=== PATIENT | female | born 1980 | race African-American/Black ===

== ENCOUNTER 2019-11-27 00:16 | Emergency (ER) | payer SELFPAY ==
[~2019-11-27] VITALS: Ht 162.6 cm; Wt 61.4 kg
[2019-11-27 04:57] LABS: AMPHET/METH SCREEN,URINE NEGATIVE (NEGATIVE); BARBITURATE SCREEN, URINE NEGATIVE (NEGATIVE); BENZODIAZEPINES SCREEN,URINE NEGATIVE (NEGATIVE); CANNABINOID SCREEN,URINE NEGATIVE (NEGATIVE); COCAINE SCREEN,URINE NEGATIVE (NEGATIVE); METHADONE SCREEN, URINE NEGATIVE (NEGATIVE); OPIATE SCREEN,URINE NEGATIVE (NEGATIVE)
[2019-11-27 05:08] LABS: PHENCYCLIDINE SCREEN,URINE NEGATIVE (NEGATIVE)
[2019-11-27 10:15] VITALS: BP 112/66
== END 2019-11-27 10:45 | disposition home or self-care (01) ==
LOC: EMS 00:16
DX: F10.129 Alcohol abuse with intoxication, unspecified (principal); R45.1 Restlessness and agitation

== ENCOUNTER 2019-11-28 20:53 | Emergency (ER) | payer OTHER ==
[~2019-11-28] VITALS: Ht 160 cm; Wt 52.3 kg
[2019-11-28 21:05] VITALS: BP 135/87
[2019-11-28 23:17] LABS: BASOPHILS % (AUTO) 1.2 % (0.0-2.0); EOSINOPHILS % (AUTO) 0.8 % (1.0-6.0); HEMOGLOBIN 11.3 g/dL (12.0-16.0); LYMPHOCYTES # (AUTO) 1.7 K/uL (1.0-4.8); LYMPHOCYTES % (AUTO) 38.6 % (22.0-44.0); MEAN CORPUSCULAR HGB CONC 33.2 G/dL (31.0-37.0); MEAN CORPUSCULAR VOLUME 93 fL (80-100); MONOCYTES # (AUTO) 0.2 K/uL (0.1-1.0); NEUTROPHILS # (AUTO) 2.4 K/uL (1.8-7.7); NEUTROPHILS % (AUTO) 54.4 % (40.0-70.0); PLATELET COUNT (AUTO) 164 K/uL (150-450); RED BLOOD CELL COUNT(AUTO) 3.65 MIL/uL (4.00-5.20); RED CELL DISTRIBUTION WIDTH 19.8 % (11.5-14.5)
[2019-11-28 23:24] LABS: ANION GAP 17 mmol/L (8-16); CALCIUM, TOTAL 8.8 mg/dL (8.8-10.5); CARBON DIOXIDE 22 mmol/L (22-29); CHLORIDE 97 mmol/L (98-107); CREATININE 0.62 mg/dL (0.60-1.30); GLOMERULAR FILTR. RATE CALC > 60 mL/min (>60); GLUCOSE,RANDOM 63 mg/dL (70-110); POTASSIUM 3.9 mmol/L (3.5-5.1); SODIUM SERUM 136 mmol/L (136-145); UREA NITROGEN, BLOOD 5 mg/dL (7-18)
[2019-11-28 23:40] LABS: ALANINE AMINOTRANSFERASE 97 U/L (12-78); ALBUMIN 4.5 g/dL (3.4-5.0); ALKALINE PHOSPHATASE 75 U/L (46-116); ASPARTATE AMINOTRANSFERASE 148 U/L (15-37); BILIRUBIN,TOTAL 0.7 mg/dL (0.1-1.0); FREE T4 (FREE THYROXINE) 0.51 ng/dL (0.76-1.46); HCG,QUANTITATIVE < 1 mIU/mL (0-6); LIPASE 103 U/L (73-393); THYROID STIMULATING HORMONE 95.12 uIU/mL (0.36-3.74); TOTAL PROTEIN, SERUM 8.1 g/dL (6.4-8.2)
[2019-11-28 23:43] LABS: B-TYPE NATRIURETIC PEPTIDE 16 pg/mL (0-100)
[2019-11-29] MEDS ORDERED: LEVOTHYROXINE SODIUM 200 MCG TABLET PO ONE (02:15)
[2019-11-29 03:32] LABS: APPEARANCE,URINE CLOUDY (CLEAR); BILIRUBIN,URINE NEGATIVE (NEGATIVE); GLUCOSE, URINE (UA) NEGATIVE (NEGATIVE); KETONES,URINE TRACE mg/dL (NEGATIVE); LEUKOCYTE ESTERASE ,URINE NEGATIVE (NEGATIVE); NITRATE,URINE NEGATIVE (NEGATIVE); OCCULT BLOOD,URINE NEGATIVE (NEGATIVE); PROTEIN,URINE SEE CONFIRM (NEGATIVE)
[2019-11-29 03:58] LABS: BACTERIA,URINE Rare /HPF (None Seen); RBC,URINE None Seen /HPF (0-2); SQUAMOUS EPITHELIAL CELL,UR Few /LPF (None Seen); WBC,URINE 0-2 /HPF (0-5)
[2019-11-29 03:59] LABS: SULFOSALICYLIC ACID,URINE 2+ (Negative)
== END 2019-11-29 02:51 | disposition home or self-care (01) ==
LOC: EMS 20:53
DX: F10.129 Alcohol abuse with intoxication, unspecified (principal); E03.9 Hypothyroidism, unspecified; R07.9 Chest pain, unspecified; R00.2 Palpitations; Y90.6 Blood alcohol level of 120-199 mg/100 ml
CPT/HCPCS: 36415; 71045; 80053; 81001; 83690; 83880; 84439; 84443; 84484; 84702; 85025; 93005; 99285; G0480

== ENCOUNTER 2020-12-04 20:47 | Emergency (ER) | payer MEDICAID, OTHER ==
[~2020-12-04] VITALS: Ht 160 cm; Wt 52.3 kg
[2020-12-04] MEDS ORDERED: LEVO75 PO (20:52)
[2020-12-04 22:14] LABS: APPEARANCE,URINE TURBID (CLEAR); BILIRUBIN,URINE NEGATIVE (NEGATIVE); GLUCOSE, URINE (UA) NEGATIVE (NEGATIVE); KETONES,URINE NEGATIVE (NEGATIVE); LEUKOCYTE ESTERASE ,URINE LARGE (NEGATIVE); NITRATE,URINE NEGATIVE (NEGATIVE); OCCULT BLOOD,URINE SMALL (NEGATIVE); PROTEIN,URINE POS 1+ (NEGATIVE); UROBILINOGEN,URINE 0.2 mg/dL (<=1.0)
[2020-12-04 22:20] LABS: BACTERIA,URINE Many /HPF (None Seen); RBC,URINE 0-2 /HPF (0-2); SQUAMOUS EPITHELIAL CELL,UR Many /LPF (None Seen); WBC,URINE >100 /HPF (0-5)
[2020-12-04] MEDS ORDERED: ACETAMINOPHEN 500 MG TABLET PO ONE (22:30)
[2020-12-05] MEDS ORDERED: DOXYCYCLINE HYCLATE 100 MG TABLET PO ONE (00:30)
[2020-12-05] MEDS ORDERED: CefTRIAXone SODIUM 1 GM/VIAL IM ONE (00:30)
[2020-12-05] MEDS ORDERED: LIDOCAINE/PF 1% 2 ML VIAL IM ONE (00:30)
[2020-12-05] MEDS ORDERED: MetroNIDAZOLE 500 MG TABLET PO ONE (00:30)
[2020-12-05] MEDS ORDERED: CIPROFLOXACIN HCL 250 MG TABLET PO ONE (00:45)
[2020-12-05] MEDS ORDERED: IBUPROFEN 600 MG TABLET PO ONE (01:15)
[2020-12-05 01:25] VITALS: BP 123/83
== END 2020-12-05 01:40 | disposition home or self-care (01) ==
LOC: EMS 20:47
DX: N39.0 Urinary tract infection, site not specified (principal); N89.8 Other specified noninflammatory disorders of vagina; F17.210 Nicotine dependence, cigarettes, uncomplicated
CPT/HCPCS: 81001; 81025; 84703; 87086; 87210; 87491; 87591; 96372; 99284; J0696; J3490

== ENCOUNTER 2021-08-08 17:22 | Emergency (ER) | payer MEDICAID ==
[~2021-08-08] VITALS: Ht 157.5 cm; Wt 52.3 kg
[~2021-08-08 17:22] MED LIST: LEVO75 PO
[2021-08-08 18:41] LABS: APPEARANCE,URINE CLEAR (CLEAR); BILIRUBIN,URINE NEGATIVE (NEGATIVE); GLUCOSE, URINE (UA) NEGATIVE (NEGATIVE); KETONES,URINE NEGATIVE (NEGATIVE); LEUKOCYTE ESTERASE ,URINE LARGE Leu/uL (NEGATIVE); NITRATE,URINE NEGATIVE (NEGATIVE); OCCULT BLOOD,URINE LARGE (NEGATIVE); PROTEIN,URINE TRACE (NEGATIVE); SPECIFIC GRAVITIY, URINE 1.009 (1.003-1.030); UROBILINOGEN,URINE <=1.0 mg/dL (<=1.0)
[2021-08-08 18:47] LABS: BASOPHILS % (AUTO) 0.1 % (0.0-2.0); EOSINOPHILS % (AUTO) 1.2 % (1.0-6.0); HEMATOCRIT 33.7 % (36-46); HEMOGLOBIN 11.1 g/dL (12.0-16.0); LYMPHOCYTES # (AUTO) 1.3 K/uL (1.0-4.8); MEAN CORPUSCULAR HEMOGLOBIN 30.6 pg (26.0-34.0); MEAN CORPUSCULAR HGB CONC 33.1 G/dL (31.0-37.0); MEAN CORPUSCULAR VOLUME 93 fL (80-100); MONOCYTES # (AUTO) 0.8 K/uL (0.1-1.0); MONOCYTES % (AUTO) 9.2 % (2.0-9.0); NEUTROPHILS # (AUTO) 6.6 K/uL (1.8-7.7); NEUTROPHILS % (AUTO) 74.5 % (40.0-70.0); PLATELET COUNT (AUTO) 211 K/uL (150-450); RED BLOOD CELL COUNT(AUTO) 3.64 MIL/uL (4.00-5.20)
[2021-08-08 18:52] LABS: BACTERIA,URINE None Seen /HPF (None Seen); SQUAMOUS EPITHELIAL CELL,UR Few /LPF (None Seen)
[2021-08-08 19:02] LABS: ANION GAP 14 mmol/L (8-16); CARBON DIOXIDE 25 mmol/L (22-29); CHLORIDE 100 mmol/L (98-107); GLOMERULAR FILTR. RATE CALC > 60 mL/min (>60); GLUCOSE,RANDOM 88 mg/dL (70-110); POTASSIUM 3.7 mmol/L (3.5-5.1); SODIUM SERUM 139 mmol/L (136-145); UREA NITROGEN, BLOOD 10 mg/dL (7-18)
[2021-08-08 19:13] LABS: ALANINE AMINOTRANSFERASE 20 U/L (12-78); ALBUMIN 3.9 g/dL (3.4-5.0); ALKALINE PHOSPHATASE 72 U/L (46-116); ASPARTATE AMINOTRANSFERASE 29 U/L (15-37); BILIRUBIN,TOTAL 0.5 mg/dL (0.1-1.0); HCG,QUANTITATIVE < 1 mIU/mL (0-6); LIPASE 86 U/L (73-393)
[2021-08-08] MEDS ORDERED: LIDOCAINE/PF 1% 2 ML VIAL IM ONE (19:15)
[2021-08-08] MEDS ORDERED: CefTRIAXone SODIUM 1 GM/VIAL IM ONE (19:15)
[2021-08-08] MEDS ORDERED: MetroNIDAZOLE 500 MG TABLET PO ONE (19:15)
[2021-08-08] MEDS ORDERED: DOXYCYCLINE HYCLATE 100 MG TABLET PO ONE (20:00)
[2021-08-08] MEDS ORDERED: DOXY50 PO (20:03)
[2021-08-08] MEDS ORDERED: KETOROLAC TROMETHAMINE 30 MG/ML VIAL IM ONE (20:15)
[2021-08-08 21:00] VITALS: BP 123/79
== END 2021-08-08 21:03 | disposition home or self-care (01) ==
LOC: EMS 17:34
DX: N83.201 Unspecified ovarian cyst, right side (principal); N73.9 Female pelvic inflammatory disease, unspecified; E03.9 Hypothyroidism, unspecified; F17.210 Nicotine dependence, cigarettes, uncomplicated; Z88.8 Allergy status to other drugs, medicaments and biological substances; Z79.899 Other long term (current) drug therapy
CPT/HCPCS: 36415; 76856; 80053; 81001; 83690; 84702; 85025; 87086; 96372; 99284; J0696; J1885; J3490